=== PATIENT | female | born 1990 | race Caucasian/White ===

== ENCOUNTER → 2017-06-04 | Outpatient (CLI) | payer OTHER ==
[~2017-06-04] MED LIST: PREDNISONE10 MG PO; ZANTAC150 M3 PO
== END | disposition home or self-care (01) ==
LOC: LAB 11:30
DX: R42 Dizziness and giddiness (principal); R51 Headache; E78.5 Hyperlipidemia, unspecified; E07.0 Hypersecretion of calcitonin

== ENCOUNTER → 2017-06-07 | Outpatient (CLI) | payer OTHER | END | disposition home or self-care (01) | LOC: PPHC 10:02 | DX: Z01.89 Encounter for other specified special examinations (principal) ==

== ENCOUNTER 2017-06-12 09:24 | Outpatient (CLI) | payer OTHER | END 2017-06-12 09:32 | disposition home or self-care (01) | LOC: SONOGRAMA 09:24 | DX: R94.6 Abnormal results of thyroid function studies (principal) ==

== ENCOUNTER 2018-03-31 10:40 | Outpatient (CLI) | payer OTHER | END 2018-03-31 11:06 | disposition home or self-care (01) | LOC: LAB 10:40 | DX: Z11.3 Encounter for screening for infections with a predominantly sexual mode of transmission (principal); E55.9 Vitamin D deficiency, unspecified; E03.8 Other specified hypothyroidism; E78.2 Mixed hyperlipidemia; Z13.1 Encounter for screening for diabetes mellitus; N91.0 Primary amenorrhea; Z00.00 Encounter for general adult medical examination without abnormal findings; I10 Essential (primary) hypertension; E78.00 Pure hypercholesterolemia, unspecified; N39.0 Urinary tract infection, site not specified; Z11.4 Encounter for screening for human immunodeficiency virus [HIV]; Z21 Asymptomatic human immunodeficiency virus [HIV] infection status; R79.9 Abnormal finding of blood chemistry, unspecified; R79.89 Other specified abnormal findings of blood chemistry; E05.90 Thyrotoxicosis, unspecified without thyrotoxic crisis or storm ==

== ENCOUNTER → 2018-05-08 | Outpatient (CLI) | payer OTHER | END | disposition home or self-care (01) | LOC: SONOGRAMA 10:42 → MAMO-SONO 13:45 | DX: N94.0 Mittelschmerz (principal); R10.2 Pelvic and perineal pain; N94.89 Other specified conditions associated with female genital organs and menstrual cycle; E03.8 Other specified hypothyroidism; E04.8 Other specified nontoxic goiter ==

== ENCOUNTER 2019-04-22 10:37 | Outpatient (CLI) | payer OTHER | END 2019-04-22 11:09 | disposition home or self-care (01) | LOC: SONOGRAMA 10:37 | DX: R31.0 Gross hematuria (principal); R30.0 Dysuria; R10.2 Pelvic and perineal pain; R94.6 Abnormal results of thyroid function studies ==

== ENCOUNTER 2020-11-22 13:36 | Outpatient (CLI) | payer OTHER | END 2020-11-22 13:50 | disposition home or self-care (01) | LOC: SONOGRAMA 13:36 | PROVIDERS: ATTEND Obstetrics & Gynecology | DX: N83.291 Other ovarian cyst, right side (principal); R10.2 Pelvic and perineal pain; N92.1 Excessive and frequent menstruation with irregular cycle ==

== ENCOUNTER 2021-10-30 00:50 | Emergency (ER) | payer OTHER ==
[~2021-10-30] VITALS: Ht 172.7 cm; Wt 59.0 kg
[2021-10-30] MEDS ORDERED: PEPCID40 MG PO (03:32)
== END 2021-10-30 03:36 ==
LOC: ER 00:50
DX: R10.13 Epigastric pain (principal)